=== PATIENT | female | born 1950 | race Hispanic/Latino ===

== ENCOUNTER → 2019-01-11 | Day surgery (SDC) | payer MEDICARE ==
[~2019-01-11] MED LIST: ADVAIR 250-501 EACH PO; ALBUTEROL0.63 MG/3; ATORVASTATIN CA10 MG PO; CHLORTHALIDONE25 MG PO; GABAPENTIN300 MG PO; LANTUS 3ML100 UNITS/ SQ; METFORMIN HCL500 MG PO; MIDAZOLAM HCL 2 MG/2 ML VIAL ONE; PROPOFOL IV EMULSION 10 MG/ML 50 ML VIAL ONE; SOLIQUA SQ; VASOTEC10 MG PO
[2019-01-11 08:41] LABS: BASOPHILS % 0.8 % (0.0-1.0); EOSINOPHILS # (AUTO) 0.1 (0.0-0.4); HEMATOCRIT 36.4 % (34.2-44.1); HEMOGLOBIN 12.3 g/dL (12.0-16.0); LYMPHOCYTES # (AUTO) 1.1 (1.0-3.2); LYMPHOCYTES % 28.6 % (18.0-39.1); MEAN CORPUSCULAR HEMOGLOBIN 30.3 pg (28-32); MEAN CORPUSCULAR HGB CONC 33.8 g/dL (31-35); MEAN CORPUSCULAR VOLUME 89.7 fL (81-99); MONOCYTES # (AUTO) 0.4 (0.2-0.8); MONOCYTES % 10.6 % (4.4-11.3); NEUTROPHILS # (AUTO) 2.3 (2.1-6.9); NEUTROPHILS % 57.7 % (38.7-80.0); PLATELET COUNT 53 x10e3/uL (140-360); RED BLOOD COUNT 4.06 x10e6/uL (3.6-5.1); RED CELL DISTRIBUTION WIDTH 13.7 % (11.7-14.4)
[2019-01-11 08:50] LABS: INR 1.01; PROTHROMBIN TIME 13.8 seconds (11.9-14.5)
[2019-01-11 08:59] LABS: PARTIAL THROMBOPLASTIN TIME 29.5 seconds (23.8-35.5)
[2019-01-11 10:20] VITALS: BP 157/82
== END | disposition home or self-care (01) ==
LOC: OR 08:11
PROVIDERS: ATTEND Internal Medicine Gastroenterology
DX: I85.00 Esophageal varices without bleeding (principal); K74.69 Other cirrhosis of liver; Z71.3 Dietary counseling and surveillance; E11.9 Type 2 diabetes mellitus without complications; I10 Essential (primary) hypertension; F17.210 Nicotine dependence, cigarettes, uncomplicated; E66.9 Obesity, unspecified; Z68.30 Body mass index [BMI] 30.0-30.9, adult; Z01.810 Encounter for preprocedural cardiovascular examination; Z01.812 Encounter for preprocedural laboratory examination; Z79.84 Long term (current) use of oral hypoglycemic drugs; J44.9 Chronic obstructive pulmonary disease, unspecified; K29.70 Gastritis, unspecified, without bleeding
CPT/HCPCS: 36415; 43244; 82948; 85025; 85610; 85730; 93005; J2250; J2704; 43235; 43255

== ENCOUNTER → 2020-01-16 | Outpatient (CLI) | payer MEDICARE ==
[~2020-01-16] MED LIST changes: -MIDAZOLAM HCL 2 MG/2 ML VIAL ONE; -PROPOFOL IV EMULSION 10 MG/ML 50 ML VIAL ONE
--- NOTE | 2020-01-16 09:03 | Diagnostic Imaging Report ---
EXAM: US ABDOMEN COMPLETE DATE: 01/16/2020 8:27 AM INDICATION: Cirrhosis, ascites COMPARISON: None TECHNIQUE: Transverse and longitudinal singh scale and color doppler sonographic images of the upper abdomen were obtained. FINDINGS: LIVER 11.7 cm in the right midclavicular line. Coarse echotexture of the liver with nodular surface contour, no masses. SPLEEN 14.0 cm in maximum diameter. Normal echogenicity, no masses. GALLBLADDER Status post cholecystectomy. BILE DUCTS No intra nor extra-hepatic biliary dilation. Common bile duct measures 6mm PANCREAS: Visualized portions are normal. RIGHT KIDNEY: 10.1 cm Echogenicity: Normal Collecting System: No hydronephrosis Stones: None Cyst/Mass: None LEFT KIDNEY: 9.3 cm Echogenicity: Normal Collecting System: No hydronephrosis Stones: None Cyst/Mass: None VESSELS: Aorta: Visualized portions are within normal size limits Inferior Vena Cava: Visualized portions are normal Main Portal Vein: 0.9 cm, normal size with hepatopetal flow. FREE FLUID: Moderate abdominal ascites. IMPRESSION: Hepatic cirrhosis. Splenomegaly. Moderate abdominal ascites. Status post cholecystectomy. Signed by: Juan M Patel MD on 01/16/2020 8:59 AM
[2020-01-16 09:04] LABS: BASOPHILS % 0.6 % (0.0-1.0); EOSINOPHILS # (AUTO) 0.1 (0.0-0.4); EOSINOPHILS % 2.6 % (0.0-6.0); HEMOGLOBIN 9.5 g/dL (12.0-16.0); LYMPHOCYTES # (AUTO) 0.8 (1.0-3.2); LYMPHOCYTES % 16.3 % (18.0-39.1); MEAN CORPUSCULAR HEMOGLOBIN 26.8 pg (28-32); MEAN CORPUSCULAR HGB CONC 30.6 g/dL (31-35); MEAN CORPUSCULAR VOLUME 87.6 fL (81-99); MONOCYTES # (AUTO) 0.6 (0.2-0.8); MONOCYTES % 13.3 % (4.4-11.3); NEUTROPHILS # (AUTO) 3.1 (2.1-6.9); PLATELET COUNT 89 x10e3/uL (140-360); RED BLOOD COUNT 3.54 x10e6/uL (3.6-5.1); RED CELL DISTRIBUTION WIDTH 15.8 % (11.7-14.4)
[2020-01-16 09:17] LABS: INR 1.16; PROTHROMBIN TIME 15.4 seconds (11.9-14.5)
[2020-01-16 09:18] LABS: PARTIAL THROMBOPLASTIN TIME 30.3 seconds (23.8-35.5)
[2020-01-16 09:30] LABS: ALBUMIN 2.4 g/dL (3.5-5.0); ALBUMIN/GLOBULIN RATIO 0.4 (0.8-2.0); ANION GAP 11.9 mmol/L (8-16); CALCIUM 9.4 mg/dL (8.4-10.2); CREATININE, SERUM 0.94 mg/dL (0.57-1.11); POTASSIUM 4.9 mmol/L (3.5-5.1)
== END ==
LOC: US 08:03
PROVIDERS: ATTEND Internal Medicine Gastroenterology
DX: K74.69 Other cirrhosis of liver (principal); R18.8 Other ascites; E11.9 Type 2 diabetes mellitus without complications; E66.9 Obesity, unspecified
CPT/HCPCS: 36415; 76700; 80053; 82105; 85025; 85610; 85730

== ENCOUNTER → 2020-02-06 | Outpatient (CLI) | payer MEDICARE ==
--- NOTE | 2020-02-06 11:09 | Diagnostic Imaging Report ---
HISTORY : Symptomatic ascites. Technique/findings: Informed written consent was obtained. Discussion of risks, benefits, and alternatives were made with the patient. The patient expressed understanding and agreed to proceed. A universal timeout was performed prior to starting the procedure. Initial ultrasound images demonstrate a large volume of ascites. A pocket of fluid was identified in the right lower quadrant of the abdomen. This area was marked. The area was prepped and draped in the usual sterile fashion. 1% lidocaine was applied to the skin and deep soft tissues. Color ultrasound was used to assess for any vessels within the vicinity of the planned trajectory of the one-step, a image was saved. A 5 Slovenian one-step catheter was inserted and removed from the peritoneal space and approximately 6.2 liters of clear yellow ascitic fluid was aspirated from the abdomen. Specimens were collected for the lab. There were no immediate complications. Impression: Successful ultrasound guided paracentesis with aspiration of 6.2 liters of fluid. This was patient's first paracentesis and the procedure was terminated with residual ascites to avoid hypotension or any complications. Patient can return for repeat paracentesis as needed. Signed by: Dillon Son MD on 02/06/2020 11:05 AM
[2020-02-06 15:15] LABS: BODY FLUID TYPE PERITONEAL
[2020-02-06 15:16] LABS: BODY FLUID APPEARANCE SL.CLOUDY; BODY FLUID COLOR YELLOW
[2020-02-06 15:17] LABS: RBC,BODY FLUID 103 cells/uL; WBC,BODY FLUID 109 cells/uL
[2020-02-06 15:30] LABS: LYMPHOCYTES,BODY FLUID 60 %; MONO/MACROPHG,BODY FLUID 13 %; NEUTROPHILS,BODY FLUID 16 %; OTHER CELLS,BODY FLUID 11 %
== END ==
LOC: US 09:20
PROVIDERS: ATTEND Internal Medicine Gastroenterology
DX: R18.8 Other ascites (principal); K74.69 Other cirrhosis of liver; E11.9 Type 2 diabetes mellitus without complications; E66.9 Obesity, unspecified
CPT/HCPCS: 36415; 49083; 82040; 84157; 87070; 87205; 88112; 88305; 89051

== ENCOUNTER → 2020-02-28 | Outpatient (CLI) | payer MEDICARE ==
[~2020-02-28] MED LIST changes: +ALBUMIN 25% 12.5GM 50ML 100 ML IV ONE; +ALBUMIN 25% 12.5GM 50ML 50 ML IV ONE
[2020-02-28 09:29] LABS: HEMOGLOBIN 8.7 g/dL (12.0-16.0)
[2020-02-28 09:41] LABS: INR 1.23; PROTHROMBIN TIME 16.1 seconds (11.9-14.5)
[2020-02-28 09:42] LABS: PARTIAL THROMBOPLASTIN TIME 30.2 seconds (23.8-35.5)
--- NOTE | 2020-02-28 12:14 | Diagnostic Imaging Report ---
HISTORY : Symptomatic ascites. Technique/findings: Informed written consent was obtained. Discussion of risks, benefits, and alternatives were made with the patient. The patient expressed understanding and agreed to proceed. A universal timeout was performed prior to starting the procedure. Initial ultrasound images demonstrate large volume of ascites. A pocket of fluid was identified in the left lower quadrant of the abdomen. This area was marked. The area was prepped and draped in the usual sterile fashion. 1% lidocaine was applied to the skin and deep soft tissues. Color ultrasound was used to assess for any vessels within the vicinity of the planned trajectory of the one-step, a image was saved. A 5 Occitan one-step catheter was inserted and removed from the peritoneal space and approximately 9.9 liters of clear yellow ascitic fluid was aspirated from the abdomen. Specimens were collected for the lab. There were no immediate complications. Impression: Successful ultrasound guided paracentesis with aspiration of 9.9 liters of fluid. Signed by: Dillon Son MD on 02/28/2020 12:11 PM
--- NOTE | 2020-02-28 12:16 | Diagnostic Imaging Report ---
EXAM: US ABDOMEN COMPLETE DATE: 02/28/2020 10:24 AM INDICATION: ^[id number] ^[id number] ^ASCITES COMPARISON: 01/16/2020 TECHNIQUE: Transverse and longitudinal singh scale and color doppler sonographic images of the abdomen were obtained. FINDINGS: LIVER 11.3 cm in the right midclavicular line. Coarsened echotexture of the liver with nodular contour, no masses. SPLEEN 13.3 cm in maximum diameter, mildly enlarged. Normal echogenicity, no masses. GALLBLADDER Surgically absent BILE DUCTS No intra nor extra-hepatic biliary dilation. Common bile duct measures 0.6cm PANCREAS: Visualized portions are normal. RIGHT KIDNEY: 10.5 cm Echogenicity: Normal Collecting System: No hydronephrosis Stones: None Cyst/Mass: None LEFT KIDNEY: 9.7 cm Echogenicity: Normal Collecting System: No hydronephrosis Stones: None Cyst/Mass: None VESSELS: Aorta: Visualized portions are within normal size limits Inferior Vena Cava: Visualized portions are normal Main Portal Vein: 1.1 cm, normal size with hepatopetal flow. FREE FLUID: Moderate ascites is noted. IMPRESSION: Stable ultrasound demonstrating cirrhotic liver morphology with evidence of portal hypertension including abdominal ascites and splenomegaly. Signed by: Dillon Son MD on 02/28/2020 12:12 PM
== END ==
LOC: US 09:02
PROVIDERS: ATTEND Internal Medicine Gastroenterology
DX: R18.8 Other ascites (principal); Z71.3 Dietary counseling and surveillance; E66.9 Obesity, unspecified
CPT/HCPCS: 36415; 49083; 76700; 85014; 85049; 85610; 85730

== ENCOUNTER → 2020-03-13 | Outpatient (CLI) | payer MEDICARE ==
[~2020-03-13] MED LIST changes: -ALBUMIN 25% 12.5GM 50ML 100 ML IV ONE; -ALBUMIN 25% 12.5GM 50ML 50 ML IV ONE
--- NOTE | 2020-03-13 11:53 | Diagnostic Imaging Report ---
Exam: Limited abdominal ultrasound Technique/findings: Informed written consent was obtained. Discussion of risks, benefits, and alternatives were made with the patient. The patient expressed understanding and agreed to proceed. A universal timeout was performed prior to starting the procedure. Initial ultrasound images of the abdomen demonstrate only a small volume of ascites within the 4 quadrants with no single large pocket. Discussion with patient was not significantly symptomatic at the time. Patient agreed to return in one week to assess for possible paracentesis. There were no immediate complications. Impression: Small volume ascites, unsafe for paracentesis at this time. Patient will return in one week to assess for increased volume ascites to allow for therapeutic paracentesis. Signed by: Dillon Son MD on 03/13/2020 11:49 AM
== END ==
LOC: US 09:47
PROVIDERS: ATTEND Internal Medicine Gastroenterology
DX: R18.8 Other ascites (principal)
CPT/HCPCS: 76705

== ENCOUNTER → 2020-03-21 | Outpatient (CLI) | payer MEDICARE | LOC: US 08:57 | PROVIDERS: ATTEND Internal Medicine Gastroenterology | DX: R18.8 Other ascites (principal) | CPT/HCPCS: 49083; C1729 ==

== ENCOUNTER → 2020-04-24 | Outpatient (CLI) | payer MEDICARE ==
[~2020-04-24] MED LIST changes: +ALBUMIN 25% 12.5GM 50ML 0 ML IV ONE
[2020-04-24 08:55] LABS: HEMOGLOBIN 10.4 g/dL (12.0-16.0)
[2020-04-24 09:06] LABS: INR 1.16; PROTHROMBIN TIME 15.4 seconds (11.9-14.5)
--- NOTE | 2020-04-24 10:29 | Diagnostic Imaging Report ---
HISTORY : Symptomatic ascites. Technique/findings: Informed written consent was obtained. Discussion of risks, benefits, and alternatives were made with the patient. The patient expressed understanding and agreed to proceed. A universal timeout was performed prior to starting the procedure. Initial ultrasound images demonstrate moderate volume of ascites. A pocket of fluid was identified in the right lower quadrant to midline of the abdomen. This area was marked. The area was prepped and draped in the usual sterile fashion. 1% lidocaine was applied to the skin and deep soft tissues. Color ultrasound was used to assess for any vessels within the vicinity of the planned trajectory of the one-step, a image was saved. The epigastric vessels were identified and avoided. A 5 Kazakh one-step catheter was inserted and removed from the peritoneal space and approximately 3.85 liters of yellow ascitic fluid was aspirated from the abdomen. Specimens were collected for the lab. There were no immediate complications. Impression: Successful ultrasound guided paracentesis with aspiration of 3.85 liters of fluid. Signed by: Dillon Son MD on 04/24/2020 10:26 AM
--- NOTE | 2020-04-24 11:12 | NUR ---
approximately 40 minutes post discharge I was called to the front lobby to see Mrs Kraus because she was having some stomach pain after drinking coffee while waiting on her ride. she stated that her stomach hurt on a scale of 1-10 she rated it a 6. I offered her a wheelchair so that I could take her to the ER. She refused and stated that she wanted to go home and would take something over the counter for pain before resorting to an ER visit. I escorted her ride and helped her into the car. Pt ambulated independently.
== END ==
LOC: US 08:22
PROVIDERS: ATTEND Internal Medicine Gastroenterology
DX: R18.8 Other ascites (principal)
CPT/HCPCS: 36415; 49083; 85014; 85049; 85610; 85730

== ENCOUNTER → 2020-05-15 | Outpatient (CLI) | payer MEDICARE ==
[~2020-05-15] MED LIST changes: -ALBUMIN 25% 12.5GM 50ML 0 ML IV ONE; +ALBUMIN 25% 12.5GM 50ML 150 ML IV ONE
== END ==
LOC: US 08:36
PROVIDERS: ATTEND Internal Medicine Gastroenterology
DX: R18.8 Other ascites (principal)
CPT/HCPCS: 49083

== ENCOUNTER → 2020-06-11 | Outpatient (CLI) | payer MEDICARE ==
[~2020-06-11] MED LIST changes: -ALBUMIN 25% 12.5GM 50ML 150 ML IV ONE; +ALBUMIN 25% 12.5GM 50ML 200 ML IV ONE
[2020-06-11 08:52] LABS: HEMOGLOBIN 10.8 g/dL (12.0-16.0)
[2020-06-11 09:05] LABS: INR 1.15; PARTIAL THROMBOPLASTIN TIME 28.9 seconds (23.8-35.5); PROTHROMBIN TIME 15.5 seconds (11.9-14.5)
== END ==
LOC: US 08:19
PROVIDERS: ATTEND Internal Medicine Gastroenterology
DX: R18.8 Other ascites (principal)
CPT/HCPCS: 36415; 49083; 85014; 85049; 85610; 85730

== ENCOUNTER 2020-07-03 10:45 | Emergency (ER) | payer MEDICARE ==
[~2020-07-03] VITALS: Ht 157.5 cm; Wt 83.9 kg
[~2020-07-03 10:45] MED LIST changes: -ALBUMIN 25% 12.5GM 50ML 150 ML IV ONE; -ALBUMIN 25% 12.5GM 50ML 50 ML IV ONE
[2020-07-03 11:03] LABS: BASOPHILS % 0.6 % (0.0-1.0); EOSINOPHILS # (AUTO) 0.1 (0.0-0.4); EOSINOPHILS % 1.7 % (0.0-6.0); HEMATOCRIT 31.3 % (34.2-44.1); LYMPHOCYTES # (AUTO) 0.6 (1.0-3.2); LYMPHOCYTES % 16.9 % (18.0-39.1); MEAN CORPUSCULAR HEMOGLOBIN 27.4 pg (28-32); MEAN CORPUSCULAR HGB CONC 31.9 g/dL (31-35); MEAN CORPUSCULAR VOLUME 85.8 fL (81-99); MONOCYTES # (AUTO) 0.4 (0.2-0.8); MONOCYTES % 11.4 % (4.4-11.3); NEUTROPHILS # (AUTO) 2.4 (2.1-6.9); NEUTROPHILS % 69.1 % (38.7-80.0); RED BLOOD COUNT 3.65 x10e6/uL (3.6-5.1); RED CELL DISTRIBUTION WIDTH 14.6 % (11.7-14.4)
[2020-07-03 11:05] LABS: PLATELET COUNT 58 x10e3/uL (140-360)
[2020-07-03 11:23] LABS: ALBUMIN 3.3 g/dL (3.5-5.0); ALBUMIN/GLOBULIN RATIO 0.7 (0.8-2.0); ANION GAP 13.9 mmol/L (8-16); CALCIUM 8.9 mg/dL (8.4-10.2); CREATININE, SERUM 0.94 mg/dL (0.57-1.11); POTASSIUM 3.9 mmol/L (3.5-5.1)
== END 2020-07-03 12:27 | disposition home or self-care (01) ==
LOC: ER 10:52
DX: I47.9 Paroxysmal tachycardia, unspecified (principal)
CPT/HCPCS: 36415; 80053; 85025; 93005; 99283

== ENCOUNTER → 2020-07-03 | Outpatient (CLI) | payer MEDICARE ==
[~2020-07-03] MED LIST changes: +ALBUMIN 25% 12.5GM 50ML 150 ML IV ONE; -ALBUMIN 25% 12.5GM 50ML 200 ML IV ONE; +ALBUMIN 25% 12.5GM 50ML 50 ML IV ONE
== END ==
LOC: US 08:38
PROVIDERS: ATTEND Internal Medicine Gastroenterology
DX: R18.8 Other ascites (principal)
CPT/HCPCS: 49083; C1729

== ENCOUNTER → 2020-07-31 | Outpatient (CLI) | payer MEDICARE ==
[~2020-07-31] MED LIST changes: +ALBUMIN 25% 12.5GM 50ML 100 ML IV ONE
[2020-07-31 11:56] LABS: HEMOGLOBIN 11.6 g/dL (12.0-16.0)
[2020-07-31 12:03] LABS: INR 1.17; PROTHROMBIN TIME 15.7 seconds (11.9-14.5)
== END ==
LOC: US 11:35
PROVIDERS: ATTEND Internal Medicine Gastroenterology
DX: R18.8 Other ascites (principal)
CPT/HCPCS: 36415; 49083; 71046; 85014; 85049; 85610; 85730

== ENCOUNTER → 2020-08-15 | Outpatient (CLI) | payer MEDICARE ==
[~2020-08-15] MED LIST changes: +ALBUMIN 25% 12.5GM 50ML 0 ML IV ONE; -ALBUMIN 25% 12.5GM 50ML 100 ML IV ONE
== END ==
LOC: US 13:41
PROVIDERS: ATTEND Internal Medicine Gastroenterology
DX: R18.8 Other ascites (principal)
CPT/HCPCS: 49083

== ENCOUNTER → 2020-09-05 | Outpatient (CLI) | payer MEDICARE ==
[~2020-09-05] MED LIST changes: -ALBUMIN 25% 12.5GM 50ML 0 ML IV ONE; +ALBUMIN 25% 12.5GM 50ML 200 ML IV ONE
[2020-09-05 12:53] LABS: HEMOGLOBIN 11.2 g/dL (12.0-16.0)
[2020-09-05 13:25] LABS: INR 1.02; PARTIAL THROMBOPLASTIN TIME 27.9 seconds (23.8-35.5)
== END ==
LOC: US 12:30
PROVIDERS: ATTEND Internal Medicine Gastroenterology
DX: R18.8 Other ascites (principal)
CPT/HCPCS: 36415; 49083; 85014; 85049; 85610; 85730

== ENCOUNTER → 2020-09-18 | Outpatient (CLI) | payer MEDICARE ==
[~2020-09-18] MED LIST changes: +ALBUMIN 25% 12.5GM 50ML 150 ML IV ONE; -ALBUMIN 25% 12.5GM 50ML 200 ML IV ONE
== END ==
LOC: US 09:25
PROVIDERS: ATTEND Internal Medicine Gastroenterology
DX: R18.8 Other ascites (principal)
CPT/HCPCS: 49083

== ENCOUNTER → 2020-10-02 | Outpatient (CLI) | payer MEDICARE | LOC: US 09:41 | PROVIDERS: ATTEND Internal Medicine Gastroenterology | DX: R18.8 Other ascites (principal) | CPT/HCPCS: 49083 ==

== ENCOUNTER → 2020-10-16 | Outpatient (CLI) | payer MEDICARE ==
[~2020-10-16] MED LIST changes: +ALBUMIN 25% 12.5GM 50ML 100 ML IV ONE; -ALBUMIN 25% 12.5GM 50ML 150 ML IV ONE
[2020-10-16 08:40] LABS: HEMOGLOBIN 9.6 g/dL (12.0-16.0)
[2020-10-16 08:56] LABS: INR 1.13; PROTHROMBIN TIME 15.1 seconds (11.9-14.5)
[2020-10-16 08:57] LABS: PARTIAL THROMBOPLASTIN TIME 30.2 seconds (23.8-35.5)
== END ==
LOC: US 08:13
PROVIDERS: ATTEND Internal Medicine Gastroenterology
DX: R18.8 Other ascites (principal)
CPT/HCPCS: 36415; 49083; 85014; 85049; 85610; 85730

== ENCOUNTER → 2020-11-04 | Outpatient (CLI) | payer MEDICARE ==
[~2020-11-04] MED LIST changes: -ALBUMIN 25% 12.5GM 50ML 100 ML IV ONE
== END ==
LOC: US 08:33
PROVIDERS: ATTEND Internal Medicine Gastroenterology
DX: R18.8 Other ascites (principal)
CPT/HCPCS: 49083

== ENCOUNTER → 2020-11-25 | Outpatient (CLI) | payer MEDICARE ==
[2020-11-25 11:37] LABS: HEMOGLOBIN 10.3 g/dL (12.0-16.0); INR 1.19; PARTIAL THROMBOPLASTIN TIME 29.2 seconds (23.8-35.5); PROTHROMBIN TIME 15.8 seconds (11.9-14.5)
== END ==
LOC: US 10:04
PROVIDERS: ATTEND Internal Medicine Gastroenterology
DX: R18.8 Other ascites (principal)
CPT/HCPCS: 36415; 49083; 85014; 85049; 85610; 85730

== ENCOUNTER → 2020-12-23 | Outpatient (CLI) | payer MEDICARE | LOC: US 09:42 | PROVIDERS: ATTEND Internal Medicine Gastroenterology | DX: R18.8 Other ascites (principal) | CPT/HCPCS: 49083 ==

== ENCOUNTER → 2021-01-22 | Outpatient (CLI) | payer MEDICARE ==
[2021-01-22 10:29] LABS: HEMOGLOBIN 9.3 g/dL (12.0-16.0)
[2021-01-22 10:41] LABS: INR 1.08; PROTHROMBIN TIME 14.2 seconds (11.9-14.5)
[2021-01-22 10:42] LABS: PARTIAL THROMBOPLASTIN TIME 28.4 seconds (23.8-35.5)
== END ==
LOC: US 09:58
PROVIDERS: ATTEND Internal Medicine Gastroenterology
DX: R18.8 Other ascites (principal)
CPT/HCPCS: 36415; 49083; 85014; 85049; 85610; 85730; C1729

== ENCOUNTER → 2021-02-19 | Outpatient (CLI) | payer MEDICARE | LOC: US 09:34 | PROVIDERS: ATTEND Internal Medicine Gastroenterology | DX: R18.8 Other ascites (principal) | CPT/HCPCS: 76705 ==

== ENCOUNTER → 2021-03-03 | Outpatient (CLI) | payer MEDICARE | LOC: US 12:07 | PROVIDERS: ATTEND Internal Medicine Gastroenterology | DX: R18.8 Other ascites (principal) | CPT/HCPCS: 76705 ==

== ENCOUNTER → 2021-05-15 | Outpatient (CLI) | payer MEDICARE ==
[2021-05-15 14:27] LABS: INR 1.2; PARTIAL THROMBOPLASTIN TIME 29.5 seconds (23.8-35.5); PROTHROMBIN TIME 16.2 seconds (11.9-14.5)
== END ==
LOC: US 13:48
PROVIDERS: ATTEND Internal Medicine Gastroenterology
DX: R18.8 Other ascites (principal)
CPT/HCPCS: 36415; 49083; 85014; 85049; 85610; 85730; C1729

== ENCOUNTER → 2021-08-04 | Outpatient (CLI) | payer MEDICARE | LOC: US 13:04 | PROVIDERS: ATTEND Internal Medicine Gastroenterology | DX: R18.8 Other ascites (principal) | CPT/HCPCS: 76705 ==

== ENCOUNTER → 2021-10-01 | Outpatient (CLI) | payer MEDICARE ==
[2021-10-01 10:24] LABS: HEMOGLOBIN 9.6 g/dL (12.0-16.0)
[2021-10-01 10:53] LABS: INR 1.15; PROTHROMBIN TIME 15.7 seconds (11.9-14.5)
[2021-10-01 12:23] LABS: BASOPHILS % 0.3 % (0.0-1.0); EOSINOPHILS # (AUTO) 0.1 (0.0-0.4); EOSINOPHILS % 3.1 % (0.0-6.0); HEMATOCRIT 29.6 % (34.2-44.1); HEMOGLOBIN 9.6 g/dL (12.0-16.0); LYMPHOCYTES # (AUTO) 0.6 (1.0-3.2); LYMPHOCYTES % 21.6 % (18.0-39.1); MEAN CORPUSCULAR HEMOGLOBIN 30.7 pg (28-32); MEAN CORPUSCULAR HGB CONC 32.4 g/dL (31-35); MEAN CORPUSCULAR VOLUME 94.6 fL (81-99); MONOCYTES # (AUTO) 0.5 (0.2-0.8); MONOCYTES % 15.8 % (4.4-11.3); NEUTROPHILS # (AUTO) 1.7 (2.1-6.9); NEUTROPHILS % 58.9 % (38.7-80.0); RED BLOOD COUNT 3.13 x10e6/uL (3.6-5.1); RED CELL DISTRIBUTION WIDTH 13.5 % (11.7-14.4)
[2021-10-01 12:27] LABS: PLATELET COUNT 46 x10e3/uL (140-360)
[2021-10-01 14:59] LABS: BODY FLUID APPEARANCE TURBID; BODY FLUID COLOR RED; BODY FLUID TYPE PERITONEAL
[2021-10-01 15:40] LABS: RBC,BODY FLUID 4200 cells/uL; WBC,BODY FLUID 401 cells/uL
[2021-10-01 16:58] LABS: LYMPHOCYTES,BODY FLUID 3 %; MONO/MACROPHG,BODY FLUID 81 %; NEUTROPHILS,BODY FLUID 13 %; OTHER CELLS,BODY FLUID 3 %
== END ==
LOC: US 09:41
PROVIDERS: ATTEND Internal Medicine Gastroenterology
DX: R18.8 Other ascites (principal)
CPT/HCPCS: 36415; 49083; 82040; 84157; 85014; 85025; 85049; 85610; 85730; 87070; 87205; 89051

== ENCOUNTER → 2021-12-28 | Outpatient (CLI) | payer MEDICARE ==
[2021-12-28 13:02] LABS: HEMOGLOBIN 10.7 g/dL (12.0-16.0)
[2021-12-28 13:28] LABS: INR 1.1; PROTHROMBIN TIME 15.2 seconds (11.9-14.5)
[2021-12-28 13:29] LABS: PARTIAL THROMBOPLASTIN TIME 29.9 seconds (23.8-35.5)
[2021-12-28 15:47] LABS: BODY FLUID APPEARANCE CLOUDY; BODY FLUID COLOR STRAW; BODY FLUID TYPE PERITONEAL
[2021-12-28 15:50] LABS: RBC,BODY FLUID 4000 cells/uL; WBC,BODY FLUID 460 cells/uL
[2021-12-28 18:33] LABS: LYMPHOCYTES,BODY FLUID 9 %; MONO/MACROPHG,BODY FLUID 87 %; NEUTROPHILS,BODY FLUID 4 %
== END ==
LOC: US 11:54
PROVIDERS: ATTEND Internal Medicine Gastroenterology
DX: R18.8 Other ascites (principal)
CPT/HCPCS: 36415; 49083; 82040; 84157; 85014; 85049; 85610; 85730; 87070; 87205; 88112; 88305; 89051; C1729

== ENCOUNTER → 2022-04-16 | Outpatient (CLI) | payer MEDICARE, OTHER ==
[~2022-04-16] MED LIST changes: +ALBUMIN 25% 12.5GM 50ML 50 ML IV ONE
[2022-04-16 10:55] LABS: INR 1.36; PROTHROMBIN TIME 17.9 seconds (11.9-14.5)
[2022-04-16 10:56] LABS: PARTIAL THROMBOPLASTIN TIME 30.4 seconds (23.8-35.5)
[2022-04-16 10:59] LABS: HEMOGLOBIN 7.8 g/dL (12.0-16.0)
== END ==
LOC: US 09:49
PROVIDERS: ATTEND Internal Medicine Gastroenterology
DX: R18.8 Other ascites (principal)
CPT/HCPCS: 36415; 49083; 85014; 85049; 85610; 85730; C1729

== ENCOUNTER → 2022-04-22 | Outpatient (CLI) | payer MEDICARE, OTHER ==
[~2022-04-22] MED LIST changes: -ALBUMIN 25% 12.5GM 50ML 50 ML IV ONE
== END ==
LOC: US 09:19
PROVIDERS: ATTEND Internal Medicine Gastroenterology
DX: R18.8 Other ascites (principal)
CPT/HCPCS: 76705

== ENCOUNTER → 2022-07-20 | Outpatient (CLI) | payer MEDICARE ==
[~2022-07-20] MED LIST changes: +ALBUMIN 25% 12.5GM 50ML 100 ML IV ONE
[2022-07-20 13:06] LABS: BASOPHILS % 0.5 % (0.0-1.0); EOSINOPHILS # (AUTO) 0.1 (0.0-0.4); EOSINOPHILS % 1.5 % (0.0-6.0); HEMATOCRIT 26.6 % (34.2-44.1); HEMOGLOBIN 8.5 g/dL (12.0-16.0); LYMPHOCYTES # (AUTO) 0.6 (1.0-3.2); LYMPHOCYTES % 14.4 % (18.0-39.1); MEAN CORPUSCULAR HEMOGLOBIN 30.5 pg (28-32); MEAN CORPUSCULAR VOLUME 95.3 fL (81-99); MONOCYTES # (AUTO) 0.4 (0.2-0.8); MONOCYTES % 8.6 % (4.4-11.3); NEUTROPHILS # (AUTO) 3.1 (2.1-6.9); NEUTROPHILS % 74.5 % (38.7-80.0); RED BLOOD COUNT 2.79 x10e6/uL (3.6-5.1)
[2022-07-20 13:09] LABS: PLATELET COUNT 39 x10e3/uL (140-360)
[2022-07-20 13:11] LABS: INR 1.31; PROTHROMBIN TIME 16.5 seconds (11.9-14.5)
[2022-07-20 13:12] LABS: PARTIAL THROMBOPLASTIN TIME 30.4 seconds (23.8-35.5)
[2022-07-20 13:16] LABS: CREATININE, SERUM 1.56 mg/dL (0.57-1.11)
== END ==
LOC: US 11:52
PROVIDERS: ATTEND Internal Medicine Gastroenterology
DX: R18.8 Other ascites (principal)
CPT/HCPCS: 36415; 49083; 82565; 83880; 84520; 85025; 85610; 85730; C1729

== ENCOUNTER → 2022-09-10 | Outpatient (CLI) | payer MEDICARE ==
[~2022-09-10] MED LIST changes: -ALBUMIN 25% 12.5GM 50ML 100 ML IV ONE
[2022-09-10 10:02] LABS: HEMOGLOBIN 9.3 g/dL (12.0-16.0)
[2022-09-10 10:28] LABS: INR 1.17; PROTHROMBIN TIME 15.4 seconds (11.9-14.5)
[2022-09-10 10:29] LABS: PARTIAL THROMBOPLASTIN TIME 31.5 seconds (23.8-35.5)
== END ==
LOC: US 09:28
PROVIDERS: ATTEND Internal Medicine Gastroenterology
DX: R18.8 Other ascites (principal)
CPT/HCPCS: 36415; 49083; 85014; 85049; 85610; 85730

== ENCOUNTER → 2022-10-08 | Outpatient (CLI) | payer MEDICARE ==
[2022-10-08 09:56] LABS: BASOPHILS % 0.5 % (0.0-1.0); EOSINOPHILS # (AUTO) 0.1 (0.0-0.4); EOSINOPHILS % 2.7 % (0.0-6.0); HEMATOCRIT 28.9 % (34.2-44.1); HEMOGLOBIN 9.3 g/dL (12.0-16.0); LYMPHOCYTES # (AUTO) 0.7 (1.0-3.2); LYMPHOCYTES % 20.1 % (18.0-39.1); MEAN CORPUSCULAR HGB CONC 32.2 g/dL (31-35); MEAN CORPUSCULAR VOLUME 93.2 fL (81-99); MONOCYTES # (AUTO) 0.6 (0.2-0.8); MONOCYTES % 15.4 % (4.4-11.3); NEUTROPHILS # (AUTO) 2.2 (2.1-6.9); NEUTROPHILS % 61.3 % (38.7-80.0); RED CELL DISTRIBUTION WIDTH 14.3 % (11.7-14.4)
[2022-10-08 10:11] LABS: PLATELET COUNT 37 x10e3/uL (140-360)
[2022-10-08 10:22] LABS: INR 1.31; PROTHROMBIN TIME 16.8 seconds (11.9-14.5)
[2022-10-08 10:23] LABS: PARTIAL THROMBOPLASTIN TIME 34.1 seconds (23.8-35.5)
== END ==
LOC: US 08:39
PROVIDERS: ATTEND Internal Medicine Gastroenterology
DX: R18.8 Other ascites (principal)
CPT/HCPCS: 36415; 49083; 85025; 85610; 85730

== ENCOUNTER → 2022-10-27 | Outpatient (CLI) | payer MEDICARE | LOC: US 09:42 | PROVIDERS: ATTEND Internal Medicine Gastroenterology | DX: R18.8 Other ascites (principal) | CPT/HCPCS: 49083 ==

== ENCOUNTER → 2022-12-08 | Outpatient (CLI) | payer MEDICARE, OTHER ==
[2022-12-08 10:32] LABS: HEMOGLOBIN 9.7 g/dL (12.0-16.0)
[2022-12-08 10:44] LABS: INR 1.14; PROTHROMBIN TIME 15.3 seconds (11.9-14.5)
[2022-12-08 10:45] LABS: PARTIAL THROMBOPLASTIN TIME 31.5 seconds (23.8-35.5)
== END ==
LOC: US 09:47
PROVIDERS: ATTEND Internal Medicine Gastroenterology
DX: R18.8 Other ascites (principal)
CPT/HCPCS: 36415; 49083; 85014; 85049; 85610; 85730; C1729